=== PATIENT | male | born 1945 | race Caucasian/White ===

== ENCOUNTER 2018-09-21 22:34 | Inpatient (IN) ==
[2018-09-21] MEDS ORDERED: DUONEB (A & A) INH ONE (23:01)
[2018-09-21] MEDS ORDERED: SOLU-MEDROL IV ONE (23:01)
[2018-09-22 00:01] LABS: BASO# 0.03 X1000 (0.0-0.2); BASO% 0.1 % (0.0-0.8); EOS# 1.26 X1000 (0.0-0.7); EOS% 4.2 % (0.0-10.0); HEMATOCRIT 32.1 % (42.0-52.0); HEMOGLOBIN 10.3 g/dL (14.0-18.0); IMM GRAN# 0.21 X1000 (0.0-0.04); IMM GRAN% 0.7 % (0.0-0.5); LYMPH# 2.49 X1000 (1.2-3.4); LYMPH% 8.3 % (20.5-51.1); MCH 25.8 PG (27-31); MCHC 32.1 g/dL (33-37); MCV 80.3 FL (81-99); MONO% 3.3 % (1.7-9.3); MPV 9.2 FL (7.4-10.4); NEUT# 25.01 X1000 (1.4-6.5); NEUT% 83.4 % (42.2-75.2); PLT 288 X1000 (130-400); RDW 16.7 % (11.5-14.5)
[2018-09-22] MEDS ORDERED: NS 1,000 ML IV ONE (00:50)
[2018-09-22 01:36] LABS: ALB/GLOB RATIO 1.6; ALBUMIN 3.4 g/dL (3.5-5.0); CALCIUM 8.4 mg/dL (8.8-10.2); CREATININE 2.6 mg/dL (0.7-1.2); POTASSIUM 5.2 mmol/L (3.5-5.1); TOTAL BILIRUBIN 0.22 mg/dL (0.20-1.00); TOTAL PROTEIN 5.5 g/dL (6.3-8.3)
--- NOTE | 2018-09-22 02:09 | PROVIDER DOCUMENTATION ---
This chart was entered by Ariane Hawkins Scribe, acting as scribe for Raul Payne MD. HPI-General Adult - General Chief Complaint: Allergic Reaction Stated Complaint: possible allergic reaction resp. distress Time Seen by Provider: 09/21/18 22:49 Source: patient Allergies/Adverse Reactions: Patient Allergies Allergy/AdvReac Type Severity Reaction Status Date / Time Penicillins Allergy Severe lip Verified 02/12/13 06:07 swelling vancomycin AdvReac Severe ANAPHYLAXIS Verified 09/21/18 23:58 Home Medications: Home Medication List Medication Instructions Recorded Confirmed Last Taken Type Aspirin 81 mg PO DAILY 02/12/13 02/12/13 02/11/13 08:00 History 81 Dm/P-Ephed/Acetaminoph/Doxylam 295 ml PO PRN PRN 02/12/13 02/12/13 02/12/13 03:00 History [Nyquil D Cold & Flu Liquid] 295 Omeprazole 20 mg PO DAILY 02/12/13 02/12/13 02/11/13 08:00 History 20 Sertraline HCl [Zoloft] 100 mg PO BID 02/12/13 02/12/13 02/11/13 20:00 History 100 Zolpidem [Ambien] 10 mg PO QHS 02/12/13 02/12/13 02/11/13 20:00 History 10 Hydrocodone Bit/Acetaminophen 1 each PO 4XDAY PRN #0 tablet 02/13/13 Unknown Rx [Hydrocodon-Acetaminophn 10325] - History of Present Illness -Gen Adult Nature of Presenting Problems: Pt is 73/m presenting to ED w/ poss. allergic reaction. He started on vancomycin IV antibiotics yesterday and after taking it today he got very flushed and started having increased SOB. Pt has hx of Cancer and recent CABG Location of Pain/Injury: reports: generalized Pain Radiation: reports: no radiation Severity: reports: moderate Onset/Duration: reports: just prior to arrival Timing: reports: still present Context/Activities at Onset: reports: none Modifying Factors: improves with: nothing Associated Symptoms: reports: fever/chills, shortness of breath. denies: nausea, vomiting Similar Symptoms Previously?: No Recently seen or treated by another doctor?: No Review of Systems - Adult - REVIEW OF SYSTEMS - ADULT Constitutional: reports: chills, fever (subjective) Eyes: reports: no symptoms reported Ears, Nose, Mouth & Throat: reports: no symptoms reported Cardiovascular: reports: no symptoms reported. denies: chest pain Respiratory: reports: no symptoms reported, shortness of breath Gastrointestinal: reports: no symptoms reported Genitourinary: reports: no symptoms reported Musculoskeletal: reports: no symptoms reported Integumentary: reports: no symptoms reported Neurological: reports: no symptoms reported. denies: dizziness/vertigo, headache/migraines Psychiatric: reports: no symptoms reported Endocrine: reports: no symptoms reported Hematologic/Lymphatic: reports: no symptoms reported Allergic/Immunologic: reports: no symptoms reported All Other Systems: Reviewed and Negative Past History - Adult - PAST MEDICAL HISTORY-ADULT Review of Records: reports: Old Records Reviewed, Nursing Assessment Review, Social history reviewed & non-contributory. Cardiovascular: denies: denies history, cardiac disease, A-Fib, angina, arrhythmia, CAD, CHF, HTN, hyperlipidemia, murmur, OK, other Respiratory: denies: denies history, asthma, COPD, lung disease, pneumonia, bronchitis, cystic fibrosis, tuberculosis, other Gastrointestinal: denies: denies history, GERD, ulcer, liver disease, cholelithi asis, hepatitis, pancreatitis, polyps, B, hemorrhoids, IBS, obstruction, diverticulosis, Crohn's, colitis, other Genitourinary: denies: denies history, retention, incontinence, STD (male), epididymitis, erectile dysfunction, prostatitis, prostate cancer, testicular injury, ECT, EN, FIB, OV, AB, UT, other Musculoskeletal: denies: denies history, neck/back injury, spinal fracture, R, L, intervertebral disc disease, chronic pain, EP, arthritis, other Neurological: denies: denies history, P, headaches/migraines, CVA, B, stroke deficits, Seizures/Epilepsy, past injury, Alzheimer's, dementia, Multiple Sclerosis, speech difficulty, cognitive dysfunction, other Endocrine/Immune: denies: denies history, thyroid disorder, adrenal insufficiency, adrenal excess, lupus, Diabetes, hypoglycemia, pituitary disorder, O, anemia, RA, CH, immunosuppression, HIV/AIDS, other Other Conditions: denies: denies history, skin disorder, MRSA, eye problems/injury, cataract/glaucoma, blindness, deaf/hard of hearing, organ injury, AN, BLOOD, SCC, other cancer, other - FAMILY HISTORY Family History: reviewed, not pertinent - SOCIAL HISTORY Smoking: denies, non-smoker Substance Use: none/never Alcohol Use Frequency: never Living Situation: family Physical Exam-General - PHYSICAL EXAM-ADULT Initial Vital Signs Reviewed: Yes - CONSTITUTIONAL General Appearance: appears well, alert, moderate distress - EYES Eyes: PERRL/EOMI, pink conjunctivae - HEAD, EARS, NOSE, MOUTH & THROAT HENMT: moist mucous membranes - NECK Neck: non-tender, full range of motion, supple, normal inspection - RESPIRATORY Respiratory: lungs clear - CARDIOVASCULAR Cardiovascular: regular rate, rhythm - GASTROINTESTINAL (ABDOMEN) Abdominal Exam: non tender - MUSCULOSKELETAL Back Exam: normal inspection Extremity: normal range of motion, non-tender, normal gait, normal inspection - SKIN Integumentary: normal color, warm/dry - NEUROLOGIC Neurologic: grossly normal - PSYCHIATRIC Psych/Mental Status: normal mood/affect, normal thought content, normal thought process, oriented x 3 Progress - PLAN OF CARE/RESULTS Progress/Plan/Lab Results: Vital Signs - 8 hr 09/21/18 22:54 Temperature 98.9 F Pulse Rate 91 H Respiratory Rate 20 Blood Pressure 99/54 O2 Sat by Pulse Oximetry 99 Orders Category Date Time Status Nursing- Obtain EKG ONCE Care 09/21/18 23:00 Active cxr [CHEST-1 VIEW] [RAD] Stat Exams 09/21/18 23:00 Ordered CBC WITH ELECTRONIC DIFF [HEME] Stat Lab 09/21/18 23:00 Uncollected COMPREHENSIVE METABOLIC PANEL [CHEM] Stat Lab 09/21/18 23:00 Uncollected PRO B-NATRIURETIC PEPTIDE Stat Lab 09/21/18 23:00 Uncollected TROPONIN T Stat Lab 09/21/18 23:00 Uncollected Albuterol 2.5MG/Ipratrop 0.5MG [Duoneb (A & A)] Med 09/21/18 23:01 Discontinued 3 ml INH NOW ONE Methylprednisolone Sod Succ [Solu-Medrol] Med 09/21/18 23:01 Discontinued 125 mg IV NOW ONE Aerosol Treatments Routine Oth 09/21/18 23:01 Active Aerosol Treatments Stat Oth 09/21/18 23:01 Active EKG [EKG] Stat Ther 09/21/18 23:00 Ordered Result Diagrams: 09/21/18 23:46 09/21/18 23:46 - EKG 1 Time of EKG reading by physician:: 00:21 EKG Read and Signed by:: Raul Payne EKG Interpretation (*Must complete 3 of following elements*): Abnormal (Accelerated Junctional rhythm, ST & T wave abnormality, consider lateral ischemia. Prolonged QT, Abnormal ECG) Rate: 81 Rhythm: Accelerated Junctional Rhythm [place]: normal QRS: normal Departure - Departure Date of Disposition Decision: 09/22/18 Time of Disposition Decision: 02:09 DIAGNOSIS: ALEKS (acute kidney injury) Vancomycin adverse reaction Qualifiers: Encounter type: initial encounter Qualified Code(s): T36.8X5A - Adverse effect of other systemic antibiotics, initial encounter Disposition: ADMITTED INPATIENT Certified Medical Emergency: Emergent Condition: Stable - Critical Care Note This patient required my direct & personal management of CC.: No Attestation - Physician/ MAGDALENA Attestation Patient care was provided by Advanced Practice Provider:: No The physician spent face to face time with patient:: Yes Advanced Practice Provider documentation review:: Supervising physician onsite and consulted in the evaluation and care of this patient. The physician did have a face to face encounter with the patient. This chart was documented by the indicated scribe, (Ariane Hawkins, Scribe) and accurately reflects the services I performed and decisions made by me, Raul Payne MD, as attested by the provider's signature.
--- NOTE | 2018-09-22 02:33 | EKG Report ---
Test Performed on : 09/22/2018 00:21:16 AM Test Reason : sob Blood Pressure : / mmHG Vent. Rate : 088 BPM Atrial Rate : 288 BPM P-R Int : 000 ms QRS Dur : 088 ms QT Int : 400 ms P-R-T Axes : 000 036 115 degrees QTc Int : 484 ms Poor data quality, interpretation may be adversely affected Accelerated Junctional rhythm. with occasional premature ventricular complexes. ST & T wave abnormality, consider lateral ischemia Prolonged QT Abnormal ECG No previous ECGs available Unconfirmed Result
[2018-09-22] MEDS ORDERED: NS 1,000 ML IV SCH (04:36)
[2018-09-22] MEDS ORDERED: ZOFRAN IV PRN (04:36)
[2018-09-22] MEDS: ZYVOX 600 MG/D5W 600 MG/300 ML IVPB IV SCH ×2 (05:02→15:59)
--- NOTE | 2018-09-22 05:13 | HISTORY AND PHYSICAL ---
PRIMARY CARE PHYSICIAN: Dr. Morales. CHIEF COMPLAINT: Shortness of breath after taking vancomycin. HISTORY OF PRESENTING ILLNESS: A 73-year-old male with a history of coronary artery disease, hypertension, CLL, who apparently was taking IV vancomycin for sacral decubitus. The patient states after he took the medicines he developed shortness of breath and a rash. The patient subsequently had come to the emergency department. He was treated for his allergic reaction with methylprednisone and DuoNebs and he had improvement. However, due to his presenting symptoms it was thought that we will place him for observation for further evaluation and management. At time of my examination, patient denied any headache, fever, chills, chest pain, hemoptysis, melena, but complained of shortness of breath and not feeling well. PAST MEDICAL HISTORY: Includes coronary artery disease, hypertension, CLL. PAST SURGICAL HISTORY: Coronary artery bypass, appendectomy, hernia repair. ALLERGIES: Penicillin. CURRENT MEDICATIONS: He does not recall except for he takes vancomycin. SOCIAL HISTORY: He is a former smoker. No history of alcohol or illicit drug use. FAMILY HISTORY: No history of coronary artery disease. REVIEW OF SYSTEMS: Fourteen point review of system as listed in HPI. Other systems negative. PHYSICAL EXAMINATION: GENERAL: Cooperative, friendly male. He is resting comfortably now. VITAL SIGNS: Temperature 98.9 degrees, pulse 91, respirations 20, blood pressure 99/54. HEENT: Atraumatic, normocephalic. Extraocular movements intact. PERRLA. NECK: No masses. CHEST: Rhonchi. CARDIOVASCULAR: Regular rate and rhythm. ABDOMEN: Soft. Positive bowel sounds. EXTREMITIES: Trace edema. NEUROLOGIC: He is awake, alert, oriented x3. GENITOURINARY: No bladder distention. SKIN: Warm. LABORATORIES AND STUDIES: WBCs 30.0, hemoglobin 10.3, hematocrit 32.1, platelets 288,000. Sodium 134, potassium 5.2, chloride 103, CO2 is 19, BUN is 51, creatinine 2.6, glucose 158. Troponin is 0.112. ASSESSMENT: This is a 73-year-old male with a history of coronary artery disease, hypertension, CLL, who apparently took IV vancomycin for treatment for a sacral decubitus. He developed shortness of breath and rash. He was brought to the emergency department and he was treated for suspected allergic reaction with Solu-Medrol and DuoNebs. He had improvement. However, he will require admission for further management. It was also noted that his troponins were mildly elevated. 1. Allergic reaction, possibly to vancomycin. 2. Sacral decubitus. 3. Leukocytosis/CLL. 4. Acute kidney injury. 5. Elevated troponin. PLAN: 1. We will admit patient to [facility]. 2. We will continue with Solu-Medrol and follow his reaction. 3. We will change his IV antibiotics from vancomycin to Zyvox. 4. Monitor his renal function closely. 5. We will consult Cardiology regarding his elevated troponin. 6. We will put patient on DVT prophylaxis with SCD and heparin. 7. We will continue to follow, reassess and make further recommendations based on patient's clinical course. cc: Andres Alston MD
--- NOTE | 2018-09-22 07:27 | Diag Imaging Result Doc PS360 ---
CHEST-1 VIEW - 09/21/2018 INDICATION: sob COMPARISON: 12/26/2012 FINDINGS: There are sternotomy wires. There is cardiomegaly and pulmonary vascular congestion. There are ill-defined reticulonodular infiltrates bilaterally. No pneumothorax or pleural effusion. IMPRESSION: Cardiomegaly, pulmonary vascular congestion, interstitial pulmonary edema. Electronically signed by Prasanth Bo 09/22/2018 7:25 AM
[2018-09-22] MEDS ORDERED: HEPARIN SUBQ SCH (09:00)
[2018-09-22 10:57] LABS: CALCIUM 9.1 mg/dL (8.8-10.2); CREATININE 2.2 mg/dL (0.7-1.2); MAGNESIUM 1.6 mg/dL (1.5-2.7); POTASSIUM 4.7 mmol/L (3.5-5.1)
--- NOTE | 2018-09-22 11:49 | PROGRESS NOTE ---
DATE: 09/22/2018 INTERVAL HISTORY: He came in with suspected vancomycin allergy, where he had started feeling chilly, and then had developed a fever of 100 to 103 degree Fahrenheit, and his shortness of breath has started worsening. In the emergency room, he was found to have elevated proBNP, pulmonary edema, was short of breath, had mild elevation of troponin, so hospitalist team was consulted for further management. SUBJECTIVE: The patient is feeling much better in terms of his shortness of breath than when he came. However, he is still very short of breath, which is more than his usual. He denies any chest pain. He is a poor historian. He does not remember the medications he is taking. I obtained some of the history from his . Apparently, he had triple-vessel CABG in 04/2018, and he had respiratory failure following which, requiring tracheostomy and long hospital stay, from which he was slowly transition to rehab, on oxygen, and he has been on about 4 L of oxygen on a daily basis. He also had chronic lymphocytic leukemia. The patient says he is not taking any medicines for it. Currently, the patient denies any cough. OBJECTIVE: Vital Signs: Temperature 97.7 degrees, pulse 75, respiratory rate 18, blood pressure 90/50, he is saturating 90% to 100% on 100% nonrebreather. General: In mild distress because of shortness of breath. HEENT: Oral cavity is dry. Lungs: He has inspiratory crackles to bilateral infrascapular region. No wheeze or rhonchi. Heart: S1, S2 normal. No murmur, rub, or gallop. Abdomen: Obese, soft, nontender. No hepatojugular reflex. He does not have any lower extremity edema. IMAGING AND LABORATORY DATA: Labs are suggestive of leukocytosis with neutrophilia, microcytic anemia, normal platelet count, elevated BUN and creatinine, suspicious of acute kidney injury. Repeat chest x-ray had suggested bilateral pulmonary edema and cardiomegaly with pulmonary vascular congestion. Electrocardiogram had ST depressions and T-wave inversions in lateral leads, including 1, aVL, V5, V6. ASSESSMENT: 1. Acute on chronic hypoxic respiratory failure due to acute pulmonary edema. 2. Suspected acute kidney injury with hyperkalemia. 3. Suspected allergic reaction to vancomycin for sacral decubitus ulcer, which appeared to be healing well. 4. Leukocytosis in the setting of chronic lymphocytic leukemia. 5. Elevated troponin, without chest pain, likely in the setting of demand ischemia and type 2 AL. 6. History of coronary artery disease, status post triple-vessel coronary artery bypass graft in 06/2018. PLAN: He received intravenous fluid resuscitation, though on examination, he has pulmonary edema and elevated proBNP and crackles. I will stop intravenous fluids, and I will start him on BiPAP to help with his work of breathing. I will follow up with ABG and chest x-ray tomorrow. I will also get echocardiogram to rule out left ventricular dysfunction considering ST- T changes in lateral leads and pulmonary edema, and will follow up with echocardiogram and Cardiology evaluation. His baseline kidney function is unknown. Records have been requested from his primary care and heart doctor's offices. Unclear if one dose of vancomycin on Sunday could have contributed to it. He was supposed to be taking Lasix at home. The medication reconciliation is pending. I will follow up with urine electrolytes. Will give him Lasix as needed, and daily BMP. I will start him on his aspirin and other medicines once medication reconciliation is completed. I will change his antibiotics to intravenous linezolid for sacral decubitus ulcer. However, it appears to be healing well on my examination. DISPOSITION: I will continue to monitor the patient in PVC unit. Plan of care discussed with the patient and his on phone. All of their questions have been answered. cc: Jules Ramires MD MTDD
[2018-09-22 11:56] LABS: URINE SOURCE CLEAN CATCH
[2018-09-22 11:59] LABS: BILIRUBIN URINE NEGATIVE (NEGATIVE); BLOOD URINE NEGATIVE (NEGATIVE); COLOR YELLOW; GLUCOSE URINE NEGATIVE (NEGATIVE); KETONE URINE NEGATIVE (NEGATIVE); LEUKOCYTES URINE NEGATIVE (NEGATIVE); NITRITE URINE NEGATIVE (NEGATIVE); PROTEIN URINE NEGATIVE (NEGATIVE); SP GRAVITY URINE 1.011; TURBIDITY URINE CLEAR (CLEAR); UROBILINOGEN URINE NORMAL (NORMAL)
[2018-09-22 12:00] LABS: UR EPITHELIAL CELLS <10 /HPF (<10); URINE BACTERIA NEGATIVE /HPF; URINE RBC <10 /HPF (<10); URINE WBC <10 /HPF (<10)
[2018-09-22] MEDS: ASPIRIN PO SCH (12:06)
[2018-09-22 12:09] LABS: UR CREAT RANDOM 41.5 mg/dL (14-26)
[2018-09-22] MEDS: DUONEB (A & A) INH SCH ×4 (12:14→23:24)
[2018-09-22] MEDS ORDERED: LASIX IV ONE (12:50)
[2018-09-22] MEDS: MAGNESIUM SULFATE 2 GM/S.W.I. 2 GM/50 ML IVPB IV SCH ×2 (13:01→15:03)
[2018-09-22 13:02] LABS: INR 1.23; PROTIME 15.7 Seconds (11.0-16.0)
[2018-09-22 13:03] LABS: PTT 38.5 Seconds (22.3-41.8)
--- NOTE | 2018-09-22 13:24 | CONSULTATION ---
DATE OF CONSULTATION: 09/22/2018 IMPRESSION: 1. Suspect pulmonary edema. 2. Atherosclerotic coronary disease. The patient is status post recent coronary bypass surgery earlier this year and had protracted recovery related to respiratory failure. 3. Chronic kidney disease. 4. Chronic lymphocytic leukemia. 5. Hypertension. 6. Sacral decubitus ulcer which developed during his period of prolonged recovery after coronary bypass surgery. RECOMMENDATIONS: 1. Diurese with IV Lasix. 2. Followup echocardiography. HISTORY: This 73-year-old white male with past history of coronary bypass surgery in March of this year with protracted recovery related to respiratory failure, hypertension, CLL, sacral decubitus developing as he recovered post coronary bypass surgery, and chronic kidney disease, was admitted through the emergency room after he developed shortness of breath, preceded by a shaking chill when he received intravenous vancomycin injection. He has been taking vancomycin injections for his sacral decubitus. He had peripheral IV, but not a PICC line or a port. He had injection yesterday, and subsequently had shaking chills and shortness of breath thereafter. There was no chest pain. He has been on home oxygen via nasal cannula as he has progressively recovered following his coronary bypass surgery complicated by respiratory failure. He relates that he did have a tracheostomy for a period of time, but this has since closed. As noted, he continues on home oxygen. Since admission, he has been getting some intravenous fluids, and his dyspnea worsened, and he has been started on 100% nonrebreather. There has been no chest pain. PAST MEDICAL HISTORY: 1. Atherosclerotic coronary disease and coronary bypass surgery earlier this year complicated by respiratory failure, requiring prolonged recovery. Records are not yet available. 2. Hypertension. 3. Chronic lymphocytic leukemia. 4. Sacral decubitus ulcer developing since coronary bypass surgery. 5. Chronic kidney disease. PAST SURGICAL HISTORY: Also includes appendectomy and hernia repair. ALLERGIES: He is allergic or intolerant to penicillin. MEDICATIONS PRIOR TO ADMISSION: As listed. SOCIAL HISTORY: He has history of previous smoking. He lives in [place]. He does not use alcohol. FAMILY HISTORY: Positive for coronary disease. REVIEW OF SYSTEMS: Pulmonary: Noteworthy for dyspnea, but negative for cough. Gastrointestinal: Noncontributory. Constitutional: Noteworthy for some chills following vancomycin injection, but otherwise negative. Remainder of the review of systems is negative/noncontributory with 14 total systems reviewed. PHYSICAL EXAMINATION: General: This is an older, white male, in no distress on supplemental oxygen per 100% nonrebreather mask. Vital Signs: Blood pressure 113/62, heart rate 78, oxygen saturation 100% on nonrebreather mask. HEENT: Extraocular movements appear intact. Mucous membranes are moist. Neck: Supple. There is some suggestion of jugular venous distention, although this is not clearly seen. Chest: Auscultation of the chest reveals bibasilar inspiratory crackles. Cardiac: Regular rate and rhythm without appreciable murmur or gallop. Abdomen: Soft. Bowel sounds are normal. Extremities: Without edema. Neurologic: He is alert and fully oriented. Speech is fluent. He moves all 4 extremities equally well. Skin: Warm and dry. Psychiatric: His mood is appropriate. LABORATORY AND DIAGNOSTIC DATA: A 12-lead EKG obtained on admission demonstrates sinus rhythm with first-degree AV block, nonspecific ST-T wave abnormality. The tracing is a poor tracing. Laboratory data demonstrates a white blood cell count of 30, hematocrit 32.1, hemoglobin 10.3, platelet count 288,000. Sodium 136, potassium 4.7, chloride 104, carbon dioxide 14, BUN 47, creatinine 2.2, glucose 198. Initial troponin 0.112. Followup troponin 0.082. Pro B-natriuretic peptide level 7552. Chest x-ray is a portable chest x-ray and demonstrates cardiomegaly and some evidence of pulmonary edema. cc: Geronimo Sierra MD MTDD
--- NOTE | 2018-09-22 14:41 | EKG Report ---
Test Performed on : 09/22/2018 11:32:52 AM Test Reason : Follow up lateral TWI ST depression Blood Pressure : / mmHG Vent. Rate : 076 BPM Atrial Rate : 076 BPM P-R Int : 236 ms QRS Dur : 094 ms QT Int : 406 ms P-R-T Axes : 000 026 122 degrees QTc Int : 456 ms Sinus rhythm. with 1st degree AV block. ST & T wave abnormality, consider lateral ischemia Abnormal ECG When compared with ECG of 22-SEP-2018 00:21, (Unconfirmed) Sinus rhythm. has replaced Junctional rhythm. Confirmed by Timbo BOYLE, M. Eugene ([id number]) on 09/24/2018 12:06:02 PM
[2018-09-22] MEDS: HEPARIN SUBQ SCH (17:18)
[2018-09-22] MEDS: SEROQUEL PO SCH (20:52)
[2018-09-22] MEDS ORDERED: NON-FORMULARY MED (Sertraline Hcl [Zoloft] 100 MG) PO SCH (21:00)
[2018-09-22] MEDS ORDERED: LIPITOR PO SCH (21:00)
--- NOTE | 2018-09-22 22:20 | ECHO REPORT ---
ORDER DATE: 09/22/2018 MEASUREMENTS: Septal thickness 1.3, left ventricular internal diameter in diastole 5.4, posterior wall thickness 0.9. Left ventricular internal diameter in systole 4.3, aortic root 4.5, left atrium 3.3. SUMMARY: 1. Fair quality study. 2. Aortic valve appears without evidence of structural abnormality and opens adequately on 2- dimensional images. Peak gradient across aortic valve is less than 10 mmHg. There is mild aortic regurgitation. Mitral, tricuspid, and pulmonic valves are without evidence of structural abnormality with very mild mitral regurgitation, mild tricuspid regurgitation, and mild pulmonic insufficiency. The estimated systolic PA pressure by Doppler is 40 mmHg suggesting mild pulmonary hypertension. The aortic root is mildly enlarged on 2-dimensional images. 3. Normal left ventricle dimensions suggested. Estimated left ventricular ejection fraction appears to be approximately 50%. No regional wall motion abnormalities evident. Left atrium, right atrium, right ventricle are normal in size with grossly preserved right ventricular systolic function. 4. No pericardial effusion. 5. Appearance of inferior vena cava suggests normal central venous pressure. cc: MD Jules Fleming MD
[2018-09-23] MEDS: HEPARIN SUBQ SCH ×3 (01:17→16:28)
[2018-09-23] MEDS: ZYVOX 600 MG/D5W 600 MG/300 ML IVPB IV SCH (03:47)
[2018-09-23 04:23] LABS: ALLEN TEST YES; BE 0.3 mmoll (-3.0-3.0); BLOOD TYPE ARTERIAL; HCO3-(ACT) 25.2 mmoll (20.0-26.0); METHB 0.7 % (0.0-1.5); O2(CT) 14.2 mL/dL (15.0-23.0); O2HB 96.8 % (95.0-99.0); PCO2(98.6) 46 mmHg (35-45); PO2(98.6) 202 mmHg (60-100); SAMPLE BLOOD; SAO2 97.5 % (95.0-100.0); THB 10.1 g/dL (11.5-17.4); pH(98.6) 7.36 (7.35-7.45)
[2018-09-23 04:32] LABS: MODALITY PRB
[2018-09-23] MEDS: PRILOSEC PO SCH (06:03)
[2018-09-23 07:20] LABS: BASO# 0.03 X1000 (0.0-0.2); BASO% 0.2 % (0.0-0.8); EOS% 7.1 % (0.0-10.0); HEMATOCRIT 30.6 % (42.0-52.0); HEMOGLOBIN 9.7 g/dL (14.0-18.0); IMM GRAN# 0.19 X1000 (0.0-0.04); LYMPH# 1.23 X1000 (1.2-3.4); LYMPH% 6.7 % (20.5-51.1); MCH 25.9 PG (27-31); MCHC 31.7 g/dL (33-37); MCV 81.8 FL (81-99); MONO# 1.19 X1000 (0.11-0.59); MONO% 6.5 % (1.7-9.3); MPV 9.7 FL (7.4-10.4); NEUT# 14.29 X1000 (1.4-6.5); NEUT% 78.5 % (42.2-75.2); PLT 293 X1000 (130-400); RBC 3.74 XMIL (4.7-6.1); RDW 16.9 % (11.5-14.5); WBC 18.23 X1000 (4.8-10.8)
[2018-09-23 07:44] LABS: CALCIUM 9.1 mg/dL (8.8-10.2); CREATININE 1.3 mg/dL (0.7-1.2)
[2018-09-23] MEDS: DUONEB (A & A) INH SCH ×5 (07:52→23:01)
[2018-09-23] MEDS: ASPIRIN PO SCH (08:09)
[2018-09-23] MEDS: LASIX PO SCH (08:09)
[2018-09-23] MEDS: PEPCID PO SCH (08:09)
[2018-09-23] MEDS ORDERED: CORDARONE PO SCH (09:00)
[2018-09-23] MEDS ORDERED: AZACTAM 2 GM in NS 50 ML IV SCH (11:15)
[2018-09-23] MEDS: NON-FORMULARY BULK MED INH SCH (11:33)
--- NOTE | 2018-09-23 11:50 | PROGRESS NOTE ---
DATE: 09/23/2018 INTERVAL HISTORY: Shortness of breath has significantly improved. He is denying new complaints. He states he is not having any chest pain. He is denying any cough. VITALS: Temperature 97.9 degrees, pulse 75, respiratory rate 18, blood pressure 110/53, and saturating 100% on 50% Ventimask at the moment. PHYSICAL EXAMINATION: General: He does not appear in any acute distress. HEENT: Oral cavity is moist. Lungs: He has inspiratory crackles and mild end-expiratory wheezes bilateral infrascapular region. No rhonchi. Cardiovascular: S1, S2 normal. Regular. No murmur, rub, or gallop. Sternotomy wound is well healed. Abdomen: Soft, nontender. No lower extremity edema. Input and output is -3.4 L so far today. LABORATORY: Labs suggestive of improving leukocytosis. Normocytic anemia. Normal platelet count. ABG suggestive of PO2 of 202 on 80% non-rebreather mask. BMP suggestive of improving hyperkalemia and improving kidney function. Troponin is trending down. Blood culture has been ordered. ASSESSMENT AND PLAN: 1. Acute on chronic hypoxic respiratory failure due to acute pulmonary edema. The patient had chronic hypoxic respiratory failure requiring 3 to 4 L of oxygen at home likely in the setting of chronic obstructive pulmonary disease after his CABG and complicated hospital course in June and July of 2018. I will resume his home Lasix and give intravenous Lasix as needed. I will follow up with echocardiogram to assess left ventricular function. I will consider removing Landeros catheter tomorrow morning. 2. Acute kidney injury with hyperkalemia. Unclear what could have contributed to this. He had received intravenous vancomycin on 09/20 and 09/21 for sacral decubitus MRSA infection. In the ER, he received intravenous fluids, but following which he received intravenous Lasix by the hospitalist team. I will continue close monitoring of kidney function, input and output. 3. Suspected allergic reaction to vancomycin, which he was getting through left forearm PICC line for MRSA sacral decubitus ulcer which currently appears to be healing well. Have listed vancomycin to be in his allergy list. I will consult Infectious Disease doctor about further antibiotic recommendation. I will keep him on intravenous linezolid. 4. Chronic lymphocytic leukemia with leukocytosis and gram-negative sepsis. I discussed him with his outpatient infectious Disease doctor in [facility] Dr. Chan in his office, and I was informed that he was referred to his office because of gram-negative sepsis of unclear source as well as sacral decubitus ulcer which was growing methicillin-resistant Staphylococcus aureus, and in fact outpatient he was receiving both intravenous aztreonam and intravenous vancomycin. His fever episode with chills could be because of bacteremia rather than vancomycin reaction. I will start him on intravenous aztreonam. I will get CT scan of the abdomen and pelvis to rule out any occult intra- abdominal source of infection. I will consult Infectious Disease Dr. Irvin for further recommendations. 5. Elevated troponin due to type 2 RI without chest pain with history of CAD status post triple-vessel coronary artery bypass graft in June of 2018. This is likely in the setting of demand ischemia. Follow up echocardiogram results. Continue atorvastatin and aspirin. I will continue his home amiodarone and oral Lasix. We will give IV Lasix as needed. 6. Others: Continue omeprazole for GERD, heparin subcutaneous for deep venous thrombosis prophylaxis. I will get physical therapy evaluation. Plan of care discussed with the patient who is an extremely poor historian. All of his questions have been answered. cc: Jules Ramires MD MTDD
--- NOTE | 2018-09-23 13:50 | Extremity Venous Study ---
PROCEDURE NAME: Venous U/S Bilateral Legs - 09/22/2018 REFERRING PHYSICIAN: Dr. Ramires. READING PHYSICIAN: Austin Reyes MD. SALES EXECUTIVE: Reza. INDICATION: Shortness of breath. There is a history of DVT in the left leg. FINDINGS: The deep and superficial veins of the right lower extremity were imaged first. They are compressible and patent without thrombus. On the left side, the deep and superficial veins were imaged throughout. They are compressible with flow. However, there appears to be chronic thrombosis of the left popliteal vein. 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 Otherwise, there is no acute DVT or SVT present. cc: MD Jules Cristina MD
[2018-09-23] MEDS ORDERED: FLAGYL PO SCH (15:00)
[2018-09-23] MEDS ORDERED: LASIX IV ONE (15:36)
--- NOTE | 2018-09-23 16:05 | PROGRESS NOTE ---
DATE: 09/23/2018 SUBJECTIVE: Patient reports feeling better. He is still requiring oxygen per mask but reports feeling much better. There has been no chest pain. OBJECTIVE: Blood pressure 124/60, heart rate 82, oxygen saturation 100%. There is no significant jugular venous distention.Chest: Auscultation of the chest reveals few bibasilar inspiratory crackles. Cardiac: Reveals a regular rate and rhythm without appreciable murmur or gallop. There is no evidence of peripheral edema. LABORATORY DATA: Includes white blood cell count 18.23, hematocrit 30.6, hemoglobin 9.7, platelet count 293,000. Sodium 143, potassium 4.0, chloride 108, carbon dioxide 24, BUN 35, creatinine 1.3. Glucose 137. Echocardiography technically difficult. Left ventricular ejection fraction estimated to be approximately 50%. IMPRESSION: 1. Pulmonary edema improving with diuresis. 2. Atherosclerotic coronary disease. Patient is status post coronary bypass grafting in March of this year complicated by sepsis and respiratory failure postoperatively as well as paroxysmal atrial fibrillation. Left ventricular ejection fraction approximately 50%. 3. Chronic lymphocytic leukemia. 4. Hypertension. 5. Sacral decubitus ulcer which developed during his prolonged recovery after coronary bypass surgery. RECOMMENDATIONS: 1. Diurese further gently. Agree with resumption of oral Lasix. 2. Decrease amiodarone to 100 mg daily with plans to taper off ultimately. cc: Geronimo Sierra MD
--- NOTE | 2018-09-23 16:07 | Diag Imaging Result Doc PS360 ---
EXAM: CT ABDOMEN/PELVIS W/O CONTRAST 09/23/2018 HISTORY: Gram negative bacteremia of unclear origin TECHNIQUE: This exam was performed using automated exposure control, adjustment of mA or kV according to patient size, and/or use of iterative reconstruction technique. COMMENT: The current study is compared with the previous examination of 02/12/2013. There is some increased interstitial opacity as well as bronchiectasis present in the lung bases including the middle lobe and inferior lingula. This is worse than on the previous examination. There are fibrotic changes in the costophrenic sulci of the lower lobes which were present previously however in addition to this there is pleural fluid bilaterally and atelectasis. There is coronary calcification. The spleen and adrenal glands are not enlarged. There is cholelithiasis. The gallbladder wall is not particularly thickened and there is no evidence of para cholecystic fluid. There is no evidence of nephrolithiasis or hydronephrosis. There is some perinephric stranding bilaterally similar in appearance to the previous examination. There is some stool throughout the colon. The pancreas is grossly normal in appearance in the absence of intravenous contrast. There is no evidence of small bowel dilatation. The aorta is partially calcified but not particularly distended. There is some diverticulosis in the sigmoid colon without evidence of acute diverticulitis. There is stool in the rectum. There is a Landeros catheter in the urinary bladder. There are degenerative disc changes in the lumbar spine. No acute bony abnormalities are present. IMPRESSION: Bibasilar bronchiectasis, atelectasis and small pleural effusions. Constipation. Cholelithiasis. Other nonacute findings as described above. Electronically signed by Collin Meyer 09/23/2018 4:05 PM
--- NOTE | 2018-09-23 16:17 | INFECTIOUS DISEASE CONSULT REP ---
DATE: 09/23/2018 CONCLUSION: The patient has a methicillin-resistant Staph aureus infected sacral decubitus ulcer. The patient also has Bacteroides bacteremia which I think originates from the sacral decubitus ulcer infection as well. The patient by virtue of having chronic lymphocytic leukemia may have low immunoglobulin levels. RECOMMENDATIONS: I have discontinued Zyvox and aztreonam and I have started the patient instead on daptomycin for the methicillin-resistant Staph aureus infection and oral metronidazole for the Bacteroides bacteremia. I am going to get immunoglobulin levels on the patient. PRESENT ILLNESS: The patient has been followed by Dr. Yuli Chan in [place]. The patient was on vancomycin and he became very short of breath and had chills and shortness of breath as well as fever. Most likely this was a reaction to giving vancomycin to the patient, but in any event he is hospitalized now in [facility]. His studies thus far show a CBC which initially had a white count of 30,000, now the white blood cell count is 18,230, hemoglobin 9.7, and platelet count 293,000. Patient's blood gases show a pH of 7.36, a PO2 of 202, and a pCO2 of 46. The patient's creatinine is 1.3. GFR is 54. Patient's urinalysis showed no white cells and no bacteria. The patient has blood cultures have been drawn just today. The patient's chest x-ray shows cardiomegaly and pulmonary edema. PAST MEDICAL HISTORY/REVIEW OF SYSTEMS: Eyes and ears: Patient has decreased vision and hearing. Neck: No stiffness. Cardiac: The patient has pulmonary edema and the patient states that he is short of breath, especially when he moves around. Respiratory: The patient is not complaining of coughing or fever or chills except when he got vancomycin. GI: No nausea, vomiting, or diarrhea. : No dysuria or flank pain. Integument: No rashes. Bones, joints, muscles: No swollen joints or muscle aching. Neurologic: No seizures. No loss of motor or sensory function. PREVIOUS HOSPITALIZATIONS AND OPERATIONS: Patient has had coronary artery bypass grafting, an appendectomy and a hernia repair. PAST MEDICAL HISTORY: Includes coronary artery disease, chronic lymphocytic leukemia and hypertension. The patient since his surgery, however, has been actually low. INFECTIOUS DISEASE HISTORY: Positive for pneumonia. Negative for UTI. FAMILY HISTORY: Positive for pulmonary embolus and multiple myeloma. SOCIAL HISTORY: The patient is . He is a former smoker. He does not drink alcoholic beverages or use illicit drugs. ALLERGIES: His chart lists allergies to penicillins manifested by lip swelling and an adverse reaction to vancomycin manifested by fever, chills and dyspnea. HOME MEDICATIONS: Include amiodarone, Lipitor, famotidine, Trelegy Ellipta, furosemide, omeprazole, Seroquel, Zoloft and Ambien. PHYSICAL EXAMINATION: Vital Signs: Temperature is 98.1 degrees, pulse 82, respirations 20, blood pressure 124/60. The patient weighs 219 pounds. General: This is an obese, somewhat ill- appearing, elderly male. He is in no acute distress. Head, eyes, ears, nose, and throat: He can hear my spoken words and see near objects. He does not have any white coating on his tongue. Neck: No meningismus. Thorax: The patient's incision is intact. Lungs: There were bilateral rales. Cardiovascular: The patient's heart rate is regular. Abdomen: Soft and nontender. Examination of the lower back, buttock area, the patient does have a sacral decubitus ulcer. It is erythematous. It has a small opening. There is some small amount of purulent drainage coming from the ulcerated area. Neurologic: Patient is alert. He can move his extremities. He does not have a tremor. His memory as regarding his medical history was slightly reduced. Integument: No rash noted. Thank you for the consult. cc: George Irvin MD
[2018-09-23] MEDS: CUBICIN 600 MG in NS 100 ML IV SCH (16:28)
[2018-09-23] MEDS: FLAGYL PO SCH ×2 (16:38→21:12)
[2018-09-23] MEDS ORDERED: FLAGYL ONE (16:42)
[2018-09-23] MEDS: DULCOLAX PR SCH ×2 (17:27→21:12)
[2018-09-23] MEDS ORDERED: LIPITOR PO SCH (21:00)
[2018-09-23] MEDS: SEROQUEL PO SCH (21:08)
[2018-09-24] MEDS: HEPARIN SUBQ SCH ×2 (00:22→08:14)
[2018-09-24] MEDS: FLAGYL PO SCH ×2 (04:07→12:46)
[2018-09-24] MEDS: PRILOSEC PO SCH (06:00)
[2018-09-24 07:21] LABS: BASO# 0.03 X1000 (0.0-0.2); BASO% 0.2 % (0.0-0.8); EOS# 1.94 X1000 (0.0-0.7); EOS% 12.4 % (0.0-10.0); HEMATOCRIT 33.5 % (42.0-52.0); HEMOGLOBIN 10.3 g/dL (14.0-18.0); IMM GRAN# 0.21 X1000 (0.0-0.04); IMM GRAN% 1.3 % (0.0-0.5); LYMPH# 1.79 X1000 (1.2-3.4); LYMPH% 11.4 % (20.5-51.1); MCH 25.4 PG (27-31); MCHC 30.7 g/dL (33-37); MCV 82.7 FL (81-99); MPV 9.6 FL (7.4-10.4); NEUT# 10.57 X1000 (1.4-6.5); NEUT% 67.7 % (42.2-75.2); PLT 339 X1000 (130-400); RBC 4.05 XMIL (4.7-6.1); RDW 17.2 % (11.5-14.5); WBC 15.64 X1000 (4.8-10.8)
[2018-09-24 07:46] LABS: AGAP 11; BUN 29 mg/dL (8-22); CALCIUM 9.4 mg/dL (8.8-10.2); CHLORIDE 104 mmol/L (98-107); COSMO 288; CREATININE 1.1 mg/dL (0.7-1.2); ESTIMATED GFR > 60; GLUCOSE 115 mg/dL (70-104); MAGNESIUM 1.9 mg/dL (1.5-2.7); POTASSIUM 3.9 mmol/L (3.5-5.1); SODIUM 141 mmol/L (136-145); TCO2 26 mmol/L (25-35)
[2018-09-24] MEDS: DUONEB (A & A) INH SCH ×3 (08:02→15:59)
[2018-09-24] MEDS: NON-FORMULARY BULK MED INH SCH (08:02)
[2018-09-24] MEDS: PEPCID PO SCH (08:14)
[2018-09-24] MEDS: LASIX PO SCH (08:14)
[2018-09-24] MEDS: ASPIRIN PO SCH (08:14)
[2018-09-24] MEDS: DULCOLAX PR SCH (08:15)
[2018-09-24] MEDS ORDERED: CORDARONE PO SCH (09:00)
--- NOTE | 2018-09-24 09:57 | INFECTIOUS DISEASE PROGRESS NO ---
DATE: 09/24/2018 PRESENT ILLNESS: The patient has a methicillin-resistant Staph aureus infected sacral decubitus ulcer. The patient also has a Bacteroides fragilis bacteremia which I think originated from the patient's infected sacral decubitus ulcer. 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 The patient's admission to the hospital I think was caused by an adverse reaction to vancomycin. MEDICATIONS: Currently, the patient is on daptomycin and Flagyl. PHYSICAL EXAMINATION: Vital Signs: Temperature is 98.3 degrees, pulse 83, respirations 16, blood pressure is 108/54. General: This is a somewhat ill-appearing elderly male. He is in no acute distress. He is obese also. Head/eyes/ears/nose/throat: He can hear my spoken words and see near objects. He does not have any white patches in his mouth. Neck: No pain with movement of his neck. Thorax: The patient's incision from his coronary artery bypass grafting is intact. Lungs: The right lung was clear. The left lung had rales. Cardiovascular: Heart rate is regular. Abdomen: Soft and nontender. The sacral area, there is an erythematous decubitus with a central ulcer that has some purulent drainage coming from it. Neurologic: Patient is alert. He can move his extremities. There is no tremor. Integument: No rash noted. LAB AND X-RAY: The patient[place] [address], hemoglobin 10.3, and platelet count 339,000. Creatinine is 1.1. GFR is greater than 60. Blood cultures are pending. Previously, a culture taken from the decubitus ulcer grew methicillin-resistant Staph aureus and a prior blood culture done in [place] grew Bacteroides fragilis. ASSESSMENT AND PLAN: The patient has methicillin-resistant Staphylococcus aureus infected sacral decubitus ulcer. There also is a Bacteroides fragilis bacteremia which I think originates from the sacral decubitus ulcer. My plan is for now continue daptomycin and Flagyl. The patient had an adverse reaction to vancomycin, most likely because it might have been infused too quickly. COMORBIDITIES: He has chronic lymphocytic leukemia and he had coronary artery bypass grafting which led to him lying in bed a lot and developing a sacral decubitus ulcer. cc: George Irvin MD
[2018-09-24 11:14] VITALS: BP 102/51
--- NOTE | 2018-09-24 12:56 | DISCHARGE SUMMARY ---
ADMISSION DATE: 09/21/2018 DISCHARGE DATE: 09/24/2018 DISPOSITION: Home. FOLLOW-UP: 1. Dr. Alcira Morales. 2. Dr. Chan. CONSULTATION DURING THIS ADMISSION: Cardiology was consulted. Patient was seen by Dr. Sierra. Infectious Disease was consulted. Patient was seen by Dr. Irvin. INVASIVE PROCEDURES DONE DURING THIS ADMISSION: None. IMAGING STATUS OF SIGNIFICANCE: A chest x-ray did reveal cardiomegaly, pulmonary venous congestion. Echocardiogram showed an ejection fraction of 50% with normal left ventricle dimension. Extremity Doppler studies reveal chronic DVT of the left popliteal vein. No acute DVT. CT scan of the abdomen and pelvis did show bibasilar bronchiectasis, atelectasis, and small pleural effusions, constipation and cholelithiasis. ADMISSION DIAGNOSES: 1. Allergy reaction. 2. Sacral decubitus ulcer. 3. Leukocytosis. 4. Acute kidney injury. DIAGNOSES AT THE TIME OF DISCHARGE: 1. Allergy reaction to vancomycin [red man syndrome]. 2. MRSA infected sacral decubitus ulcer. 3. Sepsis with Bacteroides fragilis bacteremia. 4. History of CLL. 5. Acute kidney injury, resolved. 6. Congestive heart failure with preserved ejection fraction. 7. Elevated troponin secondary to demand ischemia, resolved. 8. History of coronary artery disease status post CABG in March. DISCHARGE MEDICATIONS: 1. Sertraline 100 mg b.i.d. 2. Famotidine 20 mg p.o. daily. 3. Amiodarone 200 mg daily. 4. Furosemide 20 mg p.o. daily. 5. Atorvastatin 20 mg p.o. at bedtime. 6. Omeprazole 40 mg p.o. daily. 7. Seroquel 50 mg p.o. daily. 8. Metronidazole 500 p.o. q. 8 h. 9. Aspirin 81 mg daily. 10. Daptomycin. PRESENTING COMPLAINT: Shortness of breath after taking vancomycin. HISTORY OF PRESENT COMPLAINT: Mr. Felix is a 73-year-old gentleman who has a history of coronary artery disease status post CABG, hypertension, CLL. The patient is on home IV antimicrobials, IV vancomycin for sacral decubitus ulcer. The patient realized some shortness of breath and rash after taking the vancomycin, was brought to the emergency department where he was evaluated and admitted for vancomycin allergies. HOSPITAL COURSE: Mr. Felix was admitted to the medical floor where the vancomycin was discontinued. Daptomycin was restarted. He tolerated that throughout the hospital course. The blood cultures final report is still pending. However, in the ID report, it appears that the patient is developing Bacteroides bacteremia. So, Flagyl has been started as well. This morning he feels a lot better. No shortness of breath. No fever, no chills. He thinks he is back to his baseline and he is stable for discharge. He is going to follow up with Dr. Yuli Chan in [place] for infectious disease and he will also follow up with his primary care doctor. Mr. Felix was also evaluated during the hospital course by Cardiology because of pulmonary edema, which resolved with adequate diuresis. Kidney function has also normalized. All the discharge instructions have been discussed with him and he voiced understanding. Time spent for discharge is 35 minutes. cc: Sidney Buenrostro MD
[2018-09-24] MEDS ORDERED: GAMUNEX-C 10% IV ONE (13:00)
[2018-09-24] MEDS: CUBICIN 600 MG in NS 100 ML IV SCH (15:41)
== END 2018-09-24 16:45 | disposition home or self-care (01) | DRG 189 ==
LOC: ED 22:34 → INTOOBSV 09-22 04:17 → 3N 09-22 04:17 → SUATTDRO 09-22 04:17 → 2N 09-22 07:01 → SUATTDRO 09-22 12:39
PROVIDERS: ATTEND Internal Medicine